=== PATIENT | female | born 1955 | race Caucasian/White ===

== ENCOUNTER 2023-12-28 12:37 | Emergency (ER) | payer OTHER, MEDICARE ==
[~2023-12-28] VITALS: Ht 152.4 cm; Wt 74.3 kg
[2023-12-28 14:00] VITALS: BP 118/55; TEMP 98; O2SAT 96
== END 2023-12-28 14:06 | disposition home or self-care (01) ==
LOC: M ED 12:37 → EDBD 12:37 → M ED 14:06
DX: S81.802A Unspecified open wound, left lower leg, initial encounter (principal); X58.XXXA Exposure to other specified factors, initial encounter; I10 Essential (primary) hypertension; Y99.9 Unspecified external cause status; Y92.9 Unspecified place or not applicable; Y93.89 Activity, other specified